=== PATIENT | female | born 1995 | race Caucasian/White ===

== ENCOUNTER 2017-12-07 12:30 | Outpatient (CLI) | payer MEDICAID ==
[2017-12-07 13:03] LABS: URINE BLOOD (Dip) POC Negative (NEGATIVE); URINE GLUCOSE (Dip) POC Negative (NEGATIVE); URINE KETONES (Dip) POC 3+ (NEGATIVE); URINE LEUKOCYTE EST (Dip) POC Negative (NEGATIVE); URINE NITRITE (Dip) POC Negative (NEGATIVE); URINE TOTAL PROTEIN POC Negative (NEGATIVE)
[2017-12-07 15:14] LABS: ADD UMIC NO; UR ASCORBIC ACID NEGATIVE (NEGATIVE); UR BACTERIA FEW /HPF (NONE SEEN); UR BILIRUBIN (Dip) NEGATIVE (NEGATIVE); UR BLOOD (Dip) NEGATIVE (NEGATIVE); UR CLARITY SLIGHTLY CLOUDY (CLEAR); UR COLOR YELLOW (YELLOW); UR GLUCOSE (Dip) NEGATIVE (NEGATIVE); UR KETONES (Dip) 2+ mg/dL (NEGATIVE); UR LEUKOCYTE ESTERASE (Dip) NEGATIVE Leu/ul (NEGATIVE); UR MUCUS FEW /HPF (NONE SEEN); UR NITRITE (Dip) NEGATIVE (NEGATIVE); UR RBC 0 /HPF (0-5); UR SPECIFIC GRAVITY (Dip) 1.021 (1.003-1.030); UR SQUAMOUS EPITHELIAL CELL FEW /HPF (FEW); UR TOTAL PROTEIN (Dip) NEGATIVE (NEGATIVE); UR UROBILINOGEN (Dip) 1+ mg/dL (NEGATIVE); UR WBC 2 /HPF (0-5)
[2017-12-07] MEDS: ACETAMINOPHEN 325 MG TAB PO (16:21)
== END 2017-12-07 17:55 | disposition home or self-care (01) ==
LOC: OBT 12:30 → L-D 12:30 → OBT 17:55
DX: O26.892 Other specified pregnancy related conditions, second trimester (principal); Z3A.23 23 weeks gestation of pregnancy
CPT/HCPCS: 76817; 81001; 81003